=== PATIENT | male | born 1945 | race Caucasian/White ===

== ENCOUNTER 2016-06-08 08:53 | Day surgery (SDC) | payer BC ==
[~2016-06-08] VITALS: Ht 182.9 cm; Wt 66.4 kg
[~2016-06-08 08:53] MED LIST: CeFAZolin 1 GM/DEXTROSE 50 ML IV ONE; PRAS25CA9 PO; SODIUM CHLORIDE 0.9% 1,000 ML IV ONE; THYR30 PO
[2016-06-08] MEDS ORDERED: CeFAZolin 1 GM/DEXTROSE 50 ML IV ONE (09:30)
[2016-06-08] MEDS ORDERED: LORazepam 2 MG/ML VIAL IVP ONE (09:30)
[2016-06-08] MEDS ORDERED: 0.9% SODIUM CHLORIDE 10 ML SYRINGE IVP ONE (09:53)
[2016-06-08 10:20] LABS: BASOPHILS # (AUTO) 0.01 K/uL (0.00-0.20); BASOPHILS % (AUTO) 0.2 % (0.0-2.0); EOSINOPHILS # (AUTO) 0.28 K/uL (0.00-0.70); EOSINOPHILS % (AUTO) 6.03 % (1.0-6.0); HEMATOCRIT 33.9 % (41-53); HEMOGLOBIN 12.3 g/dL (13.5-17.5); LYMPHOCYTES # (AUTO) 0.6 K/uL (1.0-4.8); LYMPHOCYTES % (AUTO) 13.6 % (22.0-44.0); MEAN CORPUSCULAR HEMOGLOBIN 30.3 pg (26.0-34.0); MEAN CORPUSCULAR HGB CONC 36.3 G/dL (31.0-37.0); MEAN CORPUSCULAR VOLUME 84 fL (80-100); MONOCYTES # (AUTO) 0.3 K/uL (0.1-1.0); MONOCYTES % (AUTO) 7.4 % (2.0-9.0); NEUTROPHILS # (AUTO) 3.4 K/uL (1.8-7.7); NEUTROPHILS % (AUTO) 72.8 % (40.0-70.0); PLATELET COUNT (AUTO) 256 K/uL (150-450); RED BLOOD CELL COUNT(AUTO) 4.06 MIL/uL (4.50-5.90); RED CELL DISTRIBUTION WIDTH 14.7 % (11.5-14.5); WHITE BLOOD COUNT (AUTO) 4.6 K/uL (4.5-11.0)
[2016-06-08] MEDS ORDERED: LORazepam 2 MG/ML VIAL ONE (10:27)
[2016-06-08 10:29] LABS: PROTHROMBIN TIME 10.4 SEC (9.4-11.6)
[2016-06-08 11:09] LABS: ANION GAP 7 mmol/L (8-16); CALCIUM, TOTAL 8.8 mg/dL (8.8-10.5); CARBON DIOXIDE 29 mmol/L (22-29); CHLORIDE 111 mmol/L (98-107); CREATININE 0.91 mg/dL (0.60-1.30); GLOMERULAR FILTR. RATE CALC > 60 mL/min (>60); POTASSIUM 5.3 mmol/L (3.5-5.1); SODIUM SERUM 147 mmol/L (136-145); UREA NITROGEN, BLOOD 19 mg/dL (7-18)
[2016-06-08] MEDS ORDERED: LIDOCAINE HCL/PF 1% 30 ML VIAL ONE (13:53)
[2016-06-08] MEDS ORDERED: FentaNYL CITRATE-PF 100 MCG/2 ML VIAL ONE (13:53)
[2016-06-08] MEDS ORDERED: MIDAZOLAM HCL 2 MG/2 ML VIAL ONE (13:53)
[2016-06-08] MEDS ORDERED: FentaNYL CITRATE-PF 100 MCG/2 ML VIAL IVP ONE (14:21)
[2016-06-08] MEDS ORDERED: MIDAZOLAM HCL 2 MG/2 ML VIAL IVP ONE (14:26)
[2016-06-08] MEDS ORDERED: OxyCODONE HCL/ACETAMINOPHEN 5-325 MG TABLET PO ONE (15:30)
[2016-06-08] MEDS ORDERED: OxyCODONE HCL/ACETAMINOPHEN 5-325 MG TABLET ONE (17:13)
== END 2016-06-08 17:30 | disposition home or self-care (01) ==
LOC: SDS 08:53 → EDSTATUS 11:00 → SDS 17:30
PROVIDERS: ATTEND Radiology Diagnostic Radiology
DX: C85.14 Unspecified B-cell lymphoma, lymph nodes of axilla and upper limb (principal)
CPT/HCPCS: 20983; 36415; 80048; 85025; 85610; C2618; J0690; J2060; J2250; J3010; J3490; J7030; 76942